=== PATIENT | female | born 1985 | race Caucasian/White ===

== ENCOUNTER 2016-07-22 16:02 | Emergency (ER) | payer MEDICAID, OTHER ==
[2016-07-22] MEDS ORDERED: DIPH,PERTUSS(ACELL),TET VAC/PF 0.5 ML VIAL IM ONE (16:25)
[2016-07-22 16:44] LABS: BASOPHILS 0.7 % (0.0-2.0); EOSINOPHILS 2.7 % (0.0-6.0); EOSINOPHILS# 0.1 X 10^3uL (0.0-0.4); HEMATOCRIT 37.6 % (36.0-48.0); HEMOGLOBIN 12.6 g/dL (12.0-16.0); LYMPHOCYTES 25.6 % (20.0-40.0); LYMPHOCYTES# 1.3 X 10^3uL (0.8-3.8); MEAN CELL VOLUME 87.6 fL (84.0-102.0); MEAN CORPUS. HGB CONCENTRATION 33.5 g/dL (32.0-36.0); MEAN CORPUSCULAR HEMOGLOBIN 29.3 pg (29.0-35.0); MONOCYTES 8.8 % (2.0-10.0); MONOCYTES# 0.5 X 10^3uL (0.2-1.0); NEUTROPHILS 62.2 % (54.0-75.0); NEUTROPHILS# 3.4 X 10^3uL (2.6-6.7); PLATELET COUNT 326 X 10^3uL (130-440); RED CELL DISTRIBUTION WIDTH 12.4 % (11.5-14.5); WHITE BLOOD COUNT 5.3 X 10^3uL (3.9-10.7)
[2016-07-22 16:54] LABS: ALBUMIN 3.7 g/dL (3.5-5.0); ALKALINE PHOSPHATASE 49 U/L (38-126); ALT 33 U/L (9-52); AST 17 U/L (14-36); BILIRUBIN, DIRECT 0.3 mg/dL (0.0-0.4); BILIRUBIN, TOTAL 0.4 mg/dL (0.2-1.3); BLOOD UREA NITROGEN 9 mg/dL (7-17); CALCIUM 8.8 mg/dL (8.4-10.2); CHLORIDE 107 mmol/L (98-107); CREATININE 0.7 mg/dL (0.5-1.0); EST GLOMERULAR FILTRATION RATE > 60 mL/min; GLUCOSE 85 mg/dL (70-100); LIPASE 191 U/L (23-300); POTASSIUM 3.6 mmol/L (3.5-5.1); SODIUM 139 mmol/L (137-145); TOTAL PROTEIN 6.3 g/dL (6.3-8.2)
[2016-07-22 16:55] LABS: ACETAMINOPHEN < 10.0 ug/mL (10.0-30.0); ETHYL ALCOHOL < 10 mg/dL (<10); SALICYLATE < 1.0 mg/dL (<20.0)
[2016-07-22 17:04] LABS: URINE MUCUS NONE SEEN (Up to 25%)
[2016-07-22 17:17] LABS: URINE APPEARANCE CLEAR; URINE BACTERIA NONE SEEN (<10/hpf); URINE BILIRUBIN NEGATIVE (NEGATIVE); URINE BLOOD 50 Ery/uL (2+) (NEGATIVE); URINE COLOR YELLOW; URINE GLUCOSE NORMAL (NEGATIVE); URINE KETONE NEGATIVE (NEGATIVE); URINE LEUKOCYTE ESTERASE TRACE (NEGATIVE); URINE NITRITE NEGATIVE (NEGATIVE); URINE PROTEIN NEGATIVE (NEG - TRACE); URINE RBC 0-5/hpf (0-5/hpf); URINE SQUAMOUS EPITHELIAL CELL 0-5/hpf (<= 15/hpf); URINE UROBILINOGEN 0.2mg/dL (Normal) (NEG-1mg/dL); URINE WBC 0-4/hpf (0-4/hpf)
[2016-07-22 17:23] LABS: THYROID STIMULATING HORMONE 0.45 uIU/mL (0.47-4.68)
[2016-07-22] MEDS ORDERED: LIDOCAINE HCL 2% JELLY 1 APP/5 ML TUBE ONE (17:28)
--- NOTE | 2016-07-22 17:47 | ER NURSING DOCUMENTATION ---
Nurse's Notes [facility] Name:Bertrand Vela Age:30 yrs Sex:Female :1985 Arrival Date:07/22/2016 Time:16:02 BedTrauma A Private MD:Marian Edmonds Diagnosis:Suicide Attempt;Major Depression with Suicidal Ideation Presentation: 07/22 16:09 Acuity: MICHAEL 2 ma 16:11 Presenting complaint: Patient states: Pt states she cut both wrists and the right side ma of her neck at noon yesterday Admits to SI States does not currently feel suicidal In cooperative with mother States is upset over custody jaramillo. Transition of care: Home. 16:11 Method Of Arrival: Private Vehicle ma Triage Assessment: 16:22 General: Appears in no apparent distress, Behavior is cooperative. Pain: Complains of ma pain in right jaw. Historical: - Allergies: Lamictal; - Home Meds: 1. None - PMHx: Major Depression; PTSD; - PSHx: ; TONSILLECTOMY; - Tetanus: > 10 years. - Ebola Screening: : No symptoms or risks identified at this time. . - Immunization history: Flu Vaccine unknown. - Social history: Smoking status: Patient states former smoker of tobacco. Patient/guardian denies using alcohol, street drugs. Screenin:23 Infectious Disease Risk None. Abuse screen: Denies threats or abuse. Nutritional ma screening: No deficits noted. Suicide Risk Assessment: Suicidal Thinking Present - Past Attempts - Yes (1 point). Assessment: 17:16 Reassessment: Pt requests injection into neck for pain Topical Lido ordered. ma 17:46 Reassessment: Patient appears in no apparent distress at this time. Cooperative on ma transfer. Vital Signs: 16:22 BP 94 / 52; Pulse 112; Resp 18; Temp 98.2(T); Pulse Ox 98% ; Weight 51.26 kg; Height 5 ma ft. 1 in. (154.94 cm); Pain 5/10; 17:15 BP 104 / 60; Pulse 52; Pulse Ox 96% on R/A; ma 16:22 Body Mass Index 21.35 (51.26 kg, 154.94 cm) ga ED Course: 16:03 Patient arrived in ED. ds 16:09 Dianna Bai, RN is Primary Nurse. ma 16:09 Triage completed. rock 16:21 Marian Edmonds MD is Private Physician. candie 16:23 Jong Feliz MD is Attending Physician. tl1 16:24 Valuables Given to family. Pulse ox on. NIBP on. Verbal reassurance given. Mother rock remains at bedside Pt in room within view of nurses station. 16:38 Labs drawn. (by ED staff). Sent per order to lab. cb 17:22 Wound care was dressed with band aid. 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 Exp: ma 05/22/2018. Lot #: [id number]. } Route: IM; Site: left deltoid; 17:45 Follow up: Response: No adverse reaction ma 17:21 Drug: Lidocaine Ointment (2%) 1 application; Route: Topical; Infused Over: 1 ma continuous; Site: affected area; 17:21 Follow up: Response: Medication administered at discharge. ma Outcome: 17:22 [facility] Time: July 22, 2016 at 16:30 Patient's face sheet was faxed to accepting facility. Face Sheet included patient's name, address, age, gender, contact information and insurance information. Patient will be transported by: [facility] ground. Nurse and Physician Charting and Notes were sent to Accepting Facility. All tests and/or procedures with results, if applicable, were sent to accepting facility. 17:34 ER care complete, transfer ordered by . tl1 17:45 Transferred: Report called to: Malinda LOPEZ [facility] ED rock 17:45 Condition: stable 17:45 Instructed on need to admit 17:46 Patient left the ED. ma Signatures: Nguyen Saucedo RN RN cb Abuso, Melanie, RN RN ma Srot, Ankita, Reg Reg Jong Hartley MD MD tl1
--- NOTE | 2016-07-22 17:47 | ER PHYSICIAN DOCUMENTATION ---
Physician Documentation [facility] Name:Bertrand Vela Age:30 yrs Sex:Female :1985 Arrival Date:07/22/2016 Time:16:02 BedTrauma A Private MD:Marian Edmonds ED, Tom Disposition: 07/22 17:34 Chart complete. tl1 Disposition: 07/22/16 17:34 Transfer ordered to [facility]. Diagnosis are Suicide Attempt, Major Depression with Suicidal Ideation. - Reason for transfer: Higher level of care. - Accepting physician is Viraj Clement. - Condition is Good. - Problem is an acute exacerbation. - Symptoms are unchanged. COBRA Form completed? Yes Transfer - Mode of Transportation Ambulance HPI: 16:10 This 30 yrs old Female presents to ER via Private Vehicle with complaints of tl1 Suicidal Ideation. 16:10 The patient presents to the emergency department with depression, a history of a tl1 suicide gesture, suicide ideation, but the patient has no formulated plan. Onset: The symptom(s)/episode began/occurred gradually, yesterday. Severity of symptoms: At their worst the symptoms were severe in the emergency department the symptoms have improved. She has been increasingly despondent over the last several days, because she has not been allowed to see her 9 y.o. daughter in [place] for the last 7 years. She says she was dropped off yesterday at a hotel by her boyfriend, and she attempted suicide by cutting her right lateral neck and left wrist at about noon, 28 hours prior to arrival here. She could not say what precipitated this action.. Historical: - Allergies: Lamictal; - Home Meds: 1. None - PMHx: Major Depression; PTSD; - PSHx: ; TONSILLECTOMY; - Tetanus: > 10 years. - Ebola Screening: : No symptoms or risks identified at this time. . - Immunization history: Flu Vaccine unknown. - Social history: Smoking status: Patient states former smoker of tobacco. Patient/guardian denies using alcohol, street drugs. ROS: 17:28 Psych: Positive for depression, suicide gesture, suicidal ideation, Negative for drug tl1 dependence, alcohol dependence, auditory hallucinations, visual hallucinations, homicidal ideation. 17:28 All other systems are negative. Exam: 17:29 Constitutional: This is a well developed, well nourished patient who is awake, alert, tl1 and in no acute distress. Head/Face: Normocephalic, atraumatic. Eyes: Pupils equal round and reactive to light, extra-ocular motions intact. Lids and lashes normal. Conjunctiva and sclera are non-icteric and not injected. Cornea within normal limits. Periorbital areas with no swelling, redness, or edema. 17:29 ENT: Nares patent. No nasal discharge, no septal abnormalities noted. Tympanic tl1 membranes are normal and external auditory canals are clear. Oropharynx with no redness, swelling, or masses, exudates, or evidence of obstruction, uvula midline. Mucous membranes moist. 17:29 Neck: External neck: laceration, that is superficial, right lateral neck, 4 cm and 2 cm long. Not bleeding. Superficial but deep enough to have required at least a moderate amount of force., ROM/movement: is normal. 17:29 Cardiovascular: Rate: normal, Rhythm: regular, Heart sounds: normal, Edema: is not appreciated, JVD: is not appreciated. 17:29 Respiratory: the patient does not display signs of respiratory distress, Respirations: normal, Breath sounds: are normal. 17:29 Abdomen/GI: Palpation: abdomen is soft and non-tender. 17:29 Back: ROM is normal, CVA tenderness, is absent. 17:29 Musculoskeletal/extremity: Exam is negative for acute changes. 17:29 Skin: Exam negative for acute changes. 17:29 Neuro: Exam negative for acute changes. 17:29 Psych: Behavior/mood is pleasant, cooperative, depressed, Affect is calm, animated, Oriented to person, place, time, Patient having thoughts of suicide. Judgement / Insight is normal. Memory is normal. Delusions/hallucinations are not present. Vital Signs: 16:22 BP 94 / 52; Pulse 112; Resp 18; Temp 98.2(T); Pulse Ox 98% ; Weight 51.26 kg; Height 5 ma ft. 1 in. (154.94 cm); Pain 5/10; 17:15 BP 104 / 60; Pulse 52; Pulse Ox 96% on R/A; ma 16:22 Body Mass Index 21.35 (51.26 kg, 154.94 cm) ma MDM: 16:23 Patient medically screened. tl1 17:32 Differential diagnosis: depression. Data reviewed: vital signs, nurses notes, lab test tl1 result(s), and as a result, I will *Transfer Patient. Counseling: I had a detailed discussion with the patient and/or guardian regarding: the historical points, exam findings, and any diagnostic results supporting the discharge/admit diagnosis, lab results, the need to transfer to another facility. Response to treatment: There is no appreciated change of the patient's symptoms at this time. ED course: No change. She will go willingly after being placed on a 72 hour health hold. Labs notable only for U tox positive for benzos.. 07/22 16:45 Order name: CBC AUTO DIF, MDIF/RMOR IF IND; Complete Time: 10:32 ED07/23 10:30 Interpretation: Normal: WHITE BLOOD COUNT 5.3; HEMOGLOBIN 12.6; HEMATOCRIT 37.6; tl1 PLATELET COUNT 326. 07/22 16:55 Order name: BASIC METABOLIC PANEL; Complete Time: 10:32 ED07/23 Interpretation: Normal: SODIUM 139; POTASSIUM 3.6; CHLORIDE 107; CARBON DIOXIDE 27; tl1 GLUCOSE 85; BLOOD UREA NITROGEN 9; CREATININE 0.7; CALCIUM 8.8. 07/22 16:55 Order name: HEPATIC PANEL; Complete Time: 10:32 ED07/23 10:31 Interpretation: Normal: ALT 33; ALBUMIN 3.7; ALKALINE PHOSPHATASE 49; AST 17; tl1 BILIRUBIN, TOTAL 0.4; BILIRUBIN, DIRECT 0.3; TOTAL PROTEIN 6.3. 07/22 16:55 Order name: LIPASE; Complete Time: 10:32 ED07/23 10:31 Interpretation: Normal: LIPASE 191. tl07/22 16:55 Order name: SALICYLATE; Complete Time: 10:32 EDMS 07/23 10:31 Interpretation: Normal: SALICYLATE < 1.0. 07/22 16:55 Order name: ETHYL ALCOHOL; Complete Time: 10:32 EDMS 07/23 10:31 Interpretation: Normal: ETHYL ALCOHOL < 10. tl07/22 16:55 Order name: ACETAMINOPHEN; Complete Time: 10:32 EDMS 07/23 10:31 Interpretation: Normal: ACETAMINOPHEN < 10.0. 07/22 17:18 Order name: UA W/ MICRO -CULTURE IF IND; Complete Time: 10:32 EDMS 07/23 10:31 Interpretation: Normal Except: URINE BLOOD 50 Chetan/uL (2+). 1 07/22 17:20 Order name: URINE DRUG SCREEN, QUAL; Complete Time: 10:32 EDMS 07/23 10:32 Interpretation: Normal Except: BENZODIAZEPINES PRESUMPTIVE POS. tl1 07/22 17:24 Order name: THYROID STIMULATING HORMONE; Complete Time: 10:32 EDMS 07/23 10:32 Interpretation: Normal Except: THYROID STIMULATING HORMONE 0.45. 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 Exp: rock 05/22/2018. Lot #: [id number]. } Route: IM; Site: left deltoid; 17:45 Follow up: Response: No adverse reaction or 17:21 Drug: Lidocaine Ointment (2%) 1 application; Route: Topical; Infused Over: 1 ma continuous; Site: affected area; 17:21 Follow up: Response: Medication administered at discharge. ma Signatures: Dianna Bai, Jong Chinchilla RN, ma, MD MD tl1
== END 2016-07-22 17:46 | disposition short-term general hospital (02) ==
LOC: EEVIPCON 16:02 → ER 16:02
DX: F32.9 Major depressive disorder, single episode, unspecified (principal); R45.851 Suicidal ideations; S11.91XA Laceration without foreign body of unspecified part of neck, initial encounter; S61.512A Laceration without foreign body of left wrist, initial encounter; X78.1XXA Intentional self-harm by knife, initial encounter; Y92.59 Other trade areas as the place of occurrence of the external cause; Z23 Encounter for immunization; F13.10 Sedative, hypnotic or anxiolytic abuse, uncomplicated; Z76.89 Persons encountering health services in other specified circumstances
CPT/HCPCS: 80048; 80076; 80305; 80307; 80320; 80329; 81001; 83690; 84443; 85025; 90471; 99285